=== PATIENT | male | born 1950 | race Caucasian/White ===

== ENCOUNTER 2018-03-28 05:27 | Inpatient (IN) | payer OTHER ==
--- NOTE | 2018-03-28 12:20 | CT ---
CT HEAD NONCONTRAST: History: Syncope. Fall. Head injury. FINDINGS: No comparison. There is no evidence of acute intracranial hemorrhage or infarct. Post-operative niño es right frontal calvarium. Prominent diffuse cortical atrophy and chronic ischemic small vessel dise ase. No mass effect or shift of midline structures. Calcification within the arterial structures at t he brain base. IMPRESSION: 1. Post-operative changes. 2. Atherosclerosis. 3. No acute intracranial abnormalities are demonstrated. POS: BHARATH
[2018-03-28 12:22] LABS: ALT (SGPT) 14 U/L (8-55); AST (SGOT) 16 U/L (5-34); Albumin 4.1 g/dL (3.4-4.8); Alkaline Phosphatase 85 U/L (40-150); Anion Gap 16 mmol/L (10-20); BUN (Urea Nitrogen) 34 mg/dL (8.4-25.7); Bilirubin, Total 0.6 mg/dL (0.2-1.2); Calc. Creatinine Clearance 0 mL/min (70-130); Calcium 8.7 mg/dL (7.8-10.44); Carbon Dioxide 21 mmol/L (23-31); Chloride 104 mmol/L (98-107); Estimated GFR-MDRD 19; Globulin 2.9 g/dL (2.4-3.5); Glucose 117 mg/dL (80-115); Potassium 3.4 mmol/L (3.5-5.1); Sodium 138 mmol/L (136-145)
[2018-03-28 12:23] LABS: CKMB 2.6 ng/mL (0-6.6); Troponin I Less than 0.010 ng/mL (< 0.028)
--- NOTE | 2018-03-28 12:52 | CT ---
CT CERVICAL SPINE WITHOUT CONTRAST: HISTORY: Posttraumatic pain. Fall. COMPARISON: None. FINDINGS: No craniocervical dissociation. There are mild degenerative changes at the atlantoaxial articulation . The lateral masses of C1 and C2 articulate appropriately. There are degenerative changes of the f acets. The odontoid process is intact. Soft tissue neck structures are unremarkable. There is mild mass effect upon the posterior left supr aglottic larynx and hypopharynx due to medial deviation of the left internal carotid artery. The upper mediastinum and lung apices are unremarkable. There are varying degrees of central canal stenosis and foraminal narrowing on the basis of degenerat aj change. There is multilevel facet hypertrophy. Cervical spine vertebral body height is maintained. No cervical spine fracture. IMPRESSION: No cervical spine fracture. POS: BHARATH
[2018-03-28 13:05] LABS: Hemoglobin 14.5 g/dL (14.0-18.0); Mean Corpuscular Volume 83.5 fL (78.0-98.0); Red Blood Cell (RBC) Count 5.13 mill/uL (4.70-6.10); White Blood Cell (WBC) Count 8.6 thou/uL (4.8-10.8)
[2018-03-28 13:06] LABS: #Lymphocytes 1.7 thou/uL (1.20-3.40); #Neutrophils 6.1 thou/uL (1.40-6.50); %Basophils 0.7 % (0.0-1.0); %Eosinophils 0.4 % (0.0-10.0); %Lymphocytes 19.2 % (21.0-51.0); %Neutrophils 71.7 % (42.0-75.0); Mean Corpuscular HGB CONC 33.8 g/dL (32.0-36.0); Mean Corpuscular Hemoglobin 28.2 pg (27.0-31.0); Mean Platelet Volume 7.7 fL (7.4-10.4); Platelet Count 256 thou/uL (130-400); RBC Distribution Width 12.9 % (11.5-14.5)
[2018-03-28 13:07] LABS: #Basophils 0.6 thou/uL (0.0-0.2); #Monocytes 0.7 thou/uL (0.11-0.59)
[2018-03-28] MEDS ORDERED: Acyclovir 800 mg Tablet PO SCH (13:15)
[2018-03-28 14:36] LABS: Troponin I Less than 0.010 ng/mL (< 0.028)
[2018-03-28] MEDS ORDERED: Acetaminophen 325 MG TAB PO PRN (14:59)
[2018-03-28] MEDS ORDERED: Bisacodyl 5 MG TAB PO PRN (14:59)
[2018-03-28] MEDS ORDERED: Acetaminophen 650 MG Suppository PR PRN (14:59)
[2018-03-28] MEDS ORDERED: Dextrose 5% in Water 1,000 ML IV PRN (15:12)
[2018-03-28] MEDS ORDERED: Dextrose 50% Abboject 50 ML SYRINGE SLOW IVP PRN (15:12)
[2018-03-28] MEDS ORDERED: HumaLOG 300 UNITS/3 ML VIAL SC PRN (15:12)
--- NOTE | 2018-03-28 15:14 | HP ---
PRIMARY CARE PROVIDER: Unknown. CHIEF COMPLAINT: Syncopal episode. HISTORY OF PRESENT ILLNESS: Mr. Tamez is a pleasant 67-year-old gentleman who was seen at [facility] on 03/28/2018. He is an inmate of the assisted system. He reports that he was standing up earlier trying to reach for a cup of water and does not recall what happened after t hat. He reportedly passed out and fell on the floor, hitting the right side of his head on the groun d. He denies any palpitations prior to passing out, but does report feeling lightheaded prior to pas sing out. He denies any nausea or vomiting. He denies any fecal or urinary incontinence. He denies any chest pain. REVIEW OF SYSTEMS: All other systems reviewed and found to be negative. PAST MEDICAL HISTORY: Significant for hypertension, COPD, CKD, melanoma, TIA, diabetes mellitus typ e 2, seizures, dyslipidemia, coronary artery disease, and myocardial infarction. He had a normal str ess test in 09/2015. PAST SURGICAL HISTORY: Cardiac catheterization, craniotomy and gland removal from the neck and left lower extremity surgery. ALLERGIES: TALWIN and PEANUTS. HOME MEDICATIONS: The patient is unable to recall his current medications. In the past, he was on c arvedilol, Lasix, lisinopril, nortriptyline, Novolin insulin, phenytoin, pravastatin and spironolacto ne. FAMILY HISTORY: Patient reports coronary artery disease in both his parents. SOCIAL HISTORY: He denies any tobacco use, alcohol use or recreational drug use. CODE STATUS: I discussed his code status. He is FULL CODE. PHYSICAL EXAMINATION: GENERAL: On examination, Mr. Tamez is awake and alert, not in acute distress. He is obese. VITAL SIGNS: Blood pressure is 160/76, pulse 56, respiratory rate 24, and oxygen saturation 98% on r oom air. He is afebrile. EYES: No scleral icterus. No conjunctival pallor. ENT: Moist mucosal membranes, no oropharyngeal erythema or exudates. NECK: Supple, nontender, trachea is midline. RESPIRATORY: Accessory muscles of breathing are not active. Chest wall movements are symmetric bila terally. LUNGS: Clear to auscultation without wheeze, rhonchi or crepitations. CARDIOVASCULAR: S1 and S2 are heard, bradycardic and regular. Peripheral pulses are palpable. No c arotid bruit, no pericardial rub. ABDOMEN: Soft, nontender, bowel sounds heard, no hepatomegaly, no splenomegaly. NEUROLOGIC: Cranial nerves II-XII intact. Deep tendon reflexes are 2+. MUSCULOSKELETAL: Power is 5/5 in all 4 extremities. SKIN: He has herpes zoster over the left lower abdominal wall. He has a hematoma over the right orb it. LYMPHATIC: No cervical lymphadenopathy. PSYCHIATRIC: Normal mood, normal affect, patient is oriented to person, place, and time. IMAGING DATA AND LABORATORY DATA: Mr. Tamez's labs and investigations were reviewed. I reviewed his electrocardiogram, which shows sinus bradycardia, no ST changes to suggest an acute coronary syn drome. I also reviewed a noncontrast CT scan of the brain, which does not show any intracranial blee d. He also had CT scan of the cervical spine, which did not show any cervical spine fracture. He hudson s an unremarkable CBC, normal sodium, decreased potassium of 3.4, decreased carbon dioxide of 21, jennifer vated blood urea nitrogen of 34, elevated creatinine of 3.31, last known creatinine 1.54 on 6, unremarkable liver profile and normal troponin I x2. ASSESSMENT AND PLAN: Mr. Tamez is a pleasant 67-year-old gentleman who was seen at [facility] on 03/28/2018. His problem list includes: 1. Syncope: Etiology of syncope, unclear at this time. The patient will be admitted to the [facility] for telemetry monitoring. Echocardiogram and Cardiology Service consultation are being requested. 2. Herpes zoster: Will continue him on acyclovir. 3. Acute on chronic renal failure: Likely prerenal. I will provide intravenous hydration and reche ck. 4. Hypokalemia: Mild, likely asymptomatic. We will replace potassium. 5. Diabetes mellitus type 2: Start Accu-Cheks, insulin sliding scale. 6. History of seizures: Continue home medications once clarified. 7. Dyslipidemia: Continue home medications once clarified. 8. Hypertension: Resume home medications, monitor vital signs and titrate antihypertensives as need ed. LEVEL OF RISK: High. LEVEL OF COMPLEXITY: High.
[2018-03-28] MEDS ORDERED: Potassium Chloride 20 MEQ TAB PO SCH (15:15)
[2018-03-28] MEDS: Heparin 5,000 UNITS/ML VIAL SC SCH ×2 (15:42→20:51)
[2018-03-28 15:55] VITALS: BMI 38.4
[2018-03-28] MEDS: NS 0.9% w/ 20 MEQ KCL 1,000 ML/1,000 ML BAG IV SCH (16:12)
[2018-03-28] MEDS ORDERED: Prevnar 13-Val Conj/PF 0.5 ML SYRINGE IM ONE (16:45)
[2018-03-28 17:16] LABS: INR-International Normal Ratio 1.1; Prothrombin Time 13.8 SEC (12.0-14.7)
[2018-03-28 17:50] LABS: Troponin I 0.017 ng/mL (< 0.028)
[2018-03-28] MEDS: hydrALAZINE 25 MG TAB PO SCH (20:48)
[2018-03-28] MEDS: Acyclovir 800 mg Tablet PO SCH (20:48)
[2018-03-28] MEDS: Ibuprofen 600 MG TAB PO SCH (20:48)
[2018-03-28] MEDS: Atorvastatin Calcium 40 MG TAB PO SCH (20:50)
--- NOTE | 2018-03-28 21:53 | CON ---
DATE OF CONSULTATION: 03/28/18 The patient is a 67-year-old gentleman who presents with acute loss of consciousness. The patient hudson s no previous cardiac history. He has a history of deep venous thrombosis. He was seen in 09/2015 w ith atypical chest pain. He states he previous suffered a myocardial infarction at [facility] . The patient underwent a stress test during that hospitalization was found to have normal left vent ricular ejection fraction with no evidence of ischemia. The patient was in his usual state of health when he apparently suddenly lost consciousness. The patient fell and hit his head. The patient mitch ed having any chest discomfort. The patient denied having any fevers, chills or diaphoresis. The pa nolberto denies having any type of chest discomfort. PAST MEDICAL HISTORY: Significant for: 1. DVT. 2. Hypertension. 3. Dyslipidemia. 4. Cerebrovascular accident. 5. History of recurrent DVTs. 6. Coronary artery disease. PAST SURGICAL HISTORY: Craniotomy and salivary gland surgery. SOCIAL HISTORY: Former smoker. ALLERGIES: TALWIN and PEANUTS. MEDICATIONS ON ADMISSION: Pravastatin 40 daily, Lasix 40 b.i.d., Coreg 25 b.i.d., nortriptyline 50 d aily, lisinopril 40 daily, Coumadin 7.5 mg p.o. at bedtime. REVIEW OF SYSTEMS: Ten-point system otherwise unremarkable. PHYSICAL EXAMINATION: GENERAL: This is an obese gentleman in no acute distress. VITAL SIGNS: Blood pressure 183/88. NECK: No jugular distention, no carotid bruits. LUNGS: Clear to auscultation. HEART: Regular rate and rhythm, normal S1, S2, no murmurs. ABDOMEN: Nondistended. EXTREMITIES: Showed no edema. VASCULAR: Radial pulses are 2+. LABORATORY: Sodium 138, potassium 3.4, chloride 104, bicarbonate 21, BUN 34, creatinine 3.3. Tropon in was less than 0.01. White blood cell 8.6, hemoglobin 14.5, hematocrit 42.8, platelets are 256. H is EKG revealed sinus bradycardia with a short TN interval and T-wave abnormality suggestive of isch emia. IMPRESSION: 1. Syncope of unclear etiology.. 2. History of coronary artery disease. 3. Diabetes mellitus. 4. Hypertension. 5. History of a cerebrovascular accident. 6. History of DVT. 7. Renal insufficiency. 8. Shingles. This gentleman presents with a syncopal episode of unclear etiology. The patient's initial EKG did s how him to have marked sinus bradycardia. The patient's Coreg has been held. The patient is being h ydrated. An echocardiogram will be obtained. The patient may need to have placement of an event mon itor. We will follow this patient with you through his hospitalization.
[2018-03-28] MEDS: hydrALAZINE 20 MG/ML VIAL SLOW IVP PRN (23:48)
[2018-03-29 04:50] LABS: #Eosinphils 0.1 thou/uL (0.0-0.7); #Lymphocytes 1.6 thou/uL (1.20-3.40); #Monocytes 0.5 thou/uL (0.11-0.59); #Neutrophils 3.7 thou/uL (1.40-6.50); %Eosinophils 1.2 % (0.0-10.0); %Lymphocytes 27.1 % (21.0-51.0); %Monocytes 9.1 % (0.0-10.0); %Neutrophils 62.6 % (42.0-75.0); Hemoglobin 14.5 g/dL (14.0-18.0); Mean Corpuscular Hemoglobin 28.2 pg (27.0-31.0); Mean Corpuscular Volume 83.1 fL (78.0-98.0); Mean Platelet Volume 7.9 fL (7.4-10.4); Platelet Count 231 thou/uL (130-400); RBC Distribution Width 12.8 % (11.5-14.5); Red Blood Cell (RBC) Count 5.14 mill/uL (4.70-6.10)
[2018-03-29] MEDS: NS 0.9% w/ 20 MEQ KCL 1,000 ML/1,000 ML BAG IV SCH ×3 (04:54→23:32)
[2018-03-29 05:15] LABS: Anion Gap 16 mmol/L (10-20); BUN (Urea Nitrogen) 28 mg/dL (8.4-25.7); Calc. Creatinine Clearance 56 mL/min (70-130); Calcium 8.9 mg/dL (7.8-10.44); Carbon Dioxide 17 mmol/L (23-31); Chloride 108 mmol/L (98-107); Estimated GFR-MDRD 29; Glucose 100 mg/dL (80-115); Potassium 3.5 mmol/L (3.5-5.1); Sodium 137 mmol/L (136-145)
[2018-03-29] MEDS ORDERED: glipiZIDE 10 MG TAB PO SCH (07:30)
[2018-03-29] MEDS ORDERED: Furosemide 40 MG TAB PO SCH (09:00)
[2018-03-29] MEDS ORDERED: Amlodipine 5 MG TAB PO SCH (09:15)
[2018-03-29] MEDS: Clopidogrel Bisulfate 75 MG TAB PO SCH (09:22)
[2018-03-29] MEDS: Acyclovir 800 mg Tablet PO SCH ×3 (09:22→20:07)
[2018-03-29] MEDS: hydrALAZINE 25 MG TAB PO SCH ×3 (09:22→20:08)
[2018-03-29] MEDS: Aspirin 81 mg Enteric Coated Tablet PO SCH (09:22)
[2018-03-29] MEDS: Heparin 5,000 UNITS/ML VIAL SC SCH ×3 (09:26→20:11)
[2018-03-29] MEDS: Ibuprofen 600 MG TAB PO SCH (09:32)
--- NOTE | 2018-03-29 09:54 | ULT ---
BILATERAL CAROTID DUPLEX ULTRASOUND: HISTORY: Syncope. FINDINGS: There is plaque formation on both sides. The peak systolic velocity in the right ICA measures 73 cm/s with an end-diastolic velocity of 10 cm/ s and a systolic ratio of 0.5. The peak systolic velocity in the left ICA measures 75 cm/s with an end-diastolic velocity of 18 cm/s and a systolic ratio of 0.7. Flow in both vertebral arteries remains antegrade. IMPRESSION: No evidence of hemodynamically significant stenosis. POS: BHARATH
--- NOTE | 2018-03-29 14:05 | PDOC.PN ---
- Subjective Encounter Start Date: 03/29/18 Encounter Start Time: 09:30 Patient seen and examined for Syncope. No new complaints. No CP/SOB. No overnight events - Objective Resuscitation Status: Resuscitation Status FULL:Full Resuscitation MAR Reviewed: Yes Vital Signs & Weight: Vital Signs (12 hours) Temp Pulse Resp BP BP BP BP 03/29/18 11:55 97.5 F L 60 16 128/62 03/29/18 09:25 59 L 03/29/18 09:22 59 L 03/29/18 07:50 97.9 F 59 L 20 03/29/18 07:10 97.7 F 53 L 16 188/88 H 03/29/18 05:02 97.9 F 59 L 20 206/94 H 184/89 H 165/77 H Pulse Ox 03/29/18 11:55 92 L 03/29/18 09:25 03/29/18 09:22 03/29/18 07:50 03/29/18 07:10 92 L 03/29/18 05:02 Weight Weight 271 lb 3.2 oz I&O: 03/28/18 03/29/18 03/30/18 06:59 06:59 06:59 Intake Total 1516 480 Output Total 1350 Balance 166 480 Result Diagrams: 03/29/18 04:43 03/29/18 04:43 Additional Labs: Accuchecks 03/29/18 03/28/18 03/28/18 10:32 19:54 16:29 POC Glucose 93 112 H 68 L Radiology Reviewed by me: Yes (CT brain - neg, Carotid - neg) EKG Reviewed by me: Yes (Tele SB) Phys Exam - Physical Examination Constitutional: NAD Neck: no JVD Respiratory: no wheezing, no rales, no rhonchi, clear to auscultation bilateral Cardiovascular: RRR, no rub no heaves/pulsations Gastrointestinal: soft, non-tender, no distention, positive bowel sounds Musculoskeletal: no edema Neurological: non-focal, normal sensation, moves all 4 limbs Psychiatric: normal affect, A&O x 3 Dx/Plan - Plan DVT proph w/heparin, DVT proph w/SCDs IMPRESSION: 1. Syncope ?Cardiogenic 2. ERENDIRA/CKD 3 3. Recent Herpes Zoster - on Acyclovir 4. HTN - uncontrolled 5. Obesity BMI 38 / Hypokalemia - resolved / Other issues per previous notes PLAN: Cont IVF - reduce rate to 50 ml/hr Hold Lasix AM labs ?Event monitor DC Ibuprofen Cont Acyclovir - dose adjusted for renal function Cont other meds as below Reduce Glipizide dose due to ERENDIRA Add low dose Amlodipine Recheck BMP at 1700 Await Echo Review of Systems - Review of Systems Respiratory: negative: Cough, Dry, Shortness of Breath, Hemoptysis, SOB with Excertion, Pleuritic Pain, Sputum, Wheezing Cardiovascular: negative: chest pain, palpitations, orthopnea, paroxysmal nocturnal dyspnea, edema, light headedness, other - Medications/Allergies Allergies/Adverse Reactions: Allergies Allergy/AdvReac Type Severity Reaction Status Date / Time peanut Allergy Verified 09/16/15 22:51 pentazocine lactate Allergy Verified 09/16/15 22:51 [From Bryan] Medications: Current Medications Acetaminophen (Tylenol) 650 mg PO Q4H PRN PRN Reason: Headache/Fever or Pain Acetaminophen (Tylenol) 650 mg MA Q4H PRN PRN Reason: Headache/Fever or Pain Acyclovir (Zovirax) 800 mg PO TID [facility] Last Admin: 03/29/18 09:22 Dose: 800 mg Amlodipine Besylate (Norvasc) 5 mg PO BID [facility] Aspirin (Ecotrin) 81 mg PO DAILY [facility] Last Admin: 03/29/18 09:22 Dose: 81 mg Atorvastatin Calcium (Lipitor) 80 mg PO HS [facility] Last Admin: 03/28/18 20:50 Dose: 80 mg Bisacodyl (Dulcolax) 10 mg PO DAILYPRN PRN PRN Reason: Constipation Clopidogrel Bisulfate (Plavix) 75 mg PO DAILY [facility] Last Admin: 03/29/18 09:22 Dose: 75 mg Dextrose/Water (Dextrose 50%) 25 gm SLOW IVP PRN PRN PRN Reason: Hypoglycemia Duloxetine HCl (Cymbalta) 40 mg PO HS [facility] Last Admin: 03/28/18 20:50 Dose: 40 mg Furosemide (Lasix) 40 mg PO 0900 [facility] Last Admin: 03/29/18 09:22 Dose: 40 mg Glipizide (Glucotrol) 5 mg PO DAILY-[facility] Glucagon (Glucagon) 1 mg IM PRN PRN PRN Reason: Hypoglycemia Heparin Sodium (Porcine) (Heparin) 5,000 units SC TID [facility] Last Admin: 03/29/18 09:26 Dose: 5,000 units Hydralazine HCl (Apresoline) 25 mg PO TID [facility] Last Admin: 03/29/18 09:22 Dose: 25 mg Hydralazine HCl (Apresoline) 10 mg SLOW IVP Q4H PRN PRN Reason: SBP > 180 OR SBP > 100 Last Admin: 03/28/18 23:48 Dose: 10 mg Potassium Chloride/Sodium Chloride (Ns 0.9% W/ 20 Meq Kcl) 1,000 ml in 1,000 mls @ 75 mls/hr IV .[id number] [facility] Last Admin: 03/29/18 04:54 Dose: 1,000 mls Dextrose/Water (D5w) 1,000 mls @ 0 mls/hr IV .Q0M PRN PRN Reason: Hypoglycemia Insulin Human Lispro (Humalog) 0 units SC .MILD SLIDING SCALE PRN PRN Reason: Mild Correctional Scale Isosorbide Mononitrate (Imdur Er) 30 mg PO DAILY [facility] Last Admin: 03/29/18 09:22 Dose: 30 mg
[2018-03-29 17:57] LABS: Anion Gap 15 mmol/L (10-20); BUN (Urea Nitrogen) 27 mg/dL (8.4-25.7); Calc. Creatinine Clearance 55 mL/min (70-130); Calcium 9.1 mg/dL (7.8-10.44); Carbon Dioxide 22 mmol/L (23-31); Chloride 105 mmol/L (98-107); Estimated GFR-MDRD 29; Glucose 95 mg/dL (80-115); Potassium 3.6 mmol/L (3.5-5.1); Sodium 138 mmol/L (136-145)
[2018-03-29] MEDS: Atorvastatin Calcium 40 MG TAB PO SCH (20:07)
[2018-03-29] MEDS: Amlodipine 5 MG TAB PO SCH (20:08)
[2018-03-29] MEDS: hydrALAZINE 20 MG/ML VIAL SLOW IVP PRN (23:19)
[2018-03-30] MEDS: hydrALAZINE 20 MG/ML VIAL SLOW IVP PRN (03:49)
[2018-03-30 04:58] LABS: Anion Gap 16 mmol/L (10-20); BUN (Urea Nitrogen) 22 mg/dL (8.4-25.7); Calc. Creatinine Clearance 66 mL/min (70-130); Calcium 9.2 mg/dL (7.8-10.44); Carbon Dioxide 18 mmol/L (23-31); Chloride 106 mmol/L (98-107); Estimated GFR-MDRD 35; Glucose 99 mg/dL (80-115); Potassium 3.4 mmol/L (3.5-5.1); Sodium 137 mmol/L (136-145)
[2018-03-30] MEDS: glipiZIDE 5 MG TAB PO SCH (08:03)
[2018-03-30] MEDS: Potassium Chloride 20 MEQ TAB PO SCH (08:04)
[2018-03-30] MEDS ORDERED: Amlodipine 5 MG TAB PO SCH (09:00)
[2018-03-30] MEDS: Amlodipine 5 MG TAB PO SCH ×2 (09:09→21:48)
[2018-03-30] MEDS: Clopidogrel Bisulfate 75 MG TAB PO SCH (09:09)
[2018-03-30] MEDS: Aspirin 81 mg Enteric Coated Tablet PO SCH (09:09)
[2018-03-30] MEDS: Acyclovir 800 mg Tablet PO SCH ×3 (09:09→21:47)
[2018-03-30] MEDS: Heparin 5,000 UNITS/ML VIAL SC SCH ×2 (09:10→16:08)
[2018-03-30] MEDS: hydrALAZINE 25 MG TAB PO SCH ×3 (09:11→21:48)
--- NOTE | 2018-03-30 15:40 | PDOC.PN ---
- Subjective Encounter Start Date: 03/30/18 Encounter Start Time: 10:30 Patient seen and examined for ERENDIRA/Syncope. Orthostatic vitals positive today. No new complaints. No overnight events - Objective Resuscitation Status: Resuscitation Status FULL:Full Resuscitation MAR Reviewed: Yes Vital Signs & Weight: Vital Signs (12 hours) Temp Pulse Resp BP BP BP BP 03/30/18 11:11 97.1 F L 63 20 159/77 H 03/30/18 09:11 63 03/30/18 09:09 63 03/30/18 08:35 170/69 H 163/74 H 03/30/18 07:57 219/101 H 125/67 03/30/18 07:20 97.2 F L 63 20 03/30/18 05:00 62 175/82 H 03/30/18 03:49 61 03/30/18 03:38 61 20 189/91 H BP Pulse Ox 03/30/18 11:11 93 L 03/30/18 09:11 03/30/18 09:09 03/30/18 08:35 187/84 H 03/30/18 07:57 196/91 H 03/30/18 07:20 92 L 03/30/18 05:00 03/30/18 03:49 03/30/18 03:38 93 L Weight Weight 277 lb I&O: 03/29/18 03/30/18 03/31/18 06:59 06:59 06:59 Intake Total 1516 2198 Output Total 1350 1500 400 Balance 166 698 -400 Result Diagrams: 03/29/18 04:43 03/30/18 03:41 Additional Labs: Accuchecks 03/30/18 03/29/18 11:13 20:08 POC Glucose 94 110 EKG Reviewed by me: Yes (Tele SR) Phys Exam - Physical Examination Constitutional: NAD Respiratory: no wheezing, no rhonchi Cardiovascular: RRR, no rub Gastrointestinal: soft, non-tender, positive bowel sounds Musculoskeletal: no edema Neurological: moves all 4 limbs Dx/Plan - Plan DVT proph w/heparin, DVT proph w/SCDs IMPRESSION: 1. Syncope prob due to Orthostatic hypotension 2. ERENDIRA/CKD 3 - improving - prob due to NSAIDs 3. Recent Herpes Zoster - on Acyclovir 4. HTN - uncontrolled 5. Obesity BMI 38 / Hypokalemia / Other issues per previous notes PLAN: DC IVF Lasix on hold AM labs Repeat Orthostatic vitals in AM Change to inpatient - not stable for dc Cont Acyclovir/Glipizide Cont other meds as below Echo - normal EF Replace Potassium Review of Systems - Review of Systems Respiratory: negative: Cough, Dry, Shortness of Breath, Hemoptysis, SOB with Excertion, Pleuritic Pain, Sputum, Wheezing Cardiovascular: negative: chest pain, palpitations, orthopnea, paroxysmal nocturnal dyspnea, edema, light headedness, other - Medications/Allergies Allergies/Adverse Reactions: Allergies Allergy/AdvReac Type Severity Reaction Status Date / Time peanut Allergy Verified 09/16/15 22:51 pentazocine lactate Allergy Verified 09/16/15 22:51 [From Bryan] Medications: Current Medications Acetaminophen (Tylenol) 650 mg PO Q4H PRN PRN Reason: Headache/Fever or Pain Acetaminophen (Tylenol) 650 mg TN Q4H PRN PRN Reason: Headache/Fever or Pain Acyclovir (Zovirax) 800 mg PO TID [facility] Last Admin: 03/30/18 09:09 Dose: 800 mg Amlodipine Besylate (Norvasc) 5 mg PO BID [facility] Last Admin: 03/30/18 09:09 Dose: Not Given Aspirin (Ecotrin) 81 mg PO DAILY [facility] Last Admin: 03/30/18 09:09 Dose: 81 mg Atorvastatin Calcium (Lipitor) 80 mg PO [facility] Last Admin: 03/29/18 20:07 Dose: 80 mg Bisacodyl (Dulcolax) 10 mg PO DAILYPRN PRN PRN Reason: Constipation Clopidogrel Bisulfate (Plavix) 75 mg PO DAILY [facility] Last Admin: 03/30/18 09:09 Dose: 75 mg Dextrose/Water (Dextrose 50%) 25 gm SLOW IVP PRN PRN PRN Reason: Hypoglycemia Duloxetine HCl (Cymbalta) 40 mg PO HS [facility] Last Admin: 03/29/18 20:08 Dose: 40 mg Glipizide (Glucotrol) 5 mg PO DAILY-[facility] Last Admin: 03/30/18 08:03 Dose: 5 mg Glucagon (Glucagon) 1 mg IM PRN PRN PRN Reason: Hypoglycemia Heparin Sodium (Porcine) (Heparin) 5,000 units SC BID [facility] Hydralazine HCl (Apresoline) 25 mg PO TID [facility] Last Admin: 03/30/18 09:11 Dose: Not Given Hydralazine HCl (Apresoline) 10 mg SLOW IVP Q4H PRN PRN Reason: SBP > 180 OR SBP > 100 Last Admin: 03/30/18 03:49 Dose: 10 mg Dextrose/Water (D5w) 1,000 mls @ 0 mls/hr IV .Q0M PRN PRN Reason: Hypoglycemia Insulin Human Lispro (Humalog) 0 units SC .MILD SLIDING SCALE PRN PRN Reason: Mild Correctional Scale Isosorbide Mononitrate (Imdur Er) 30 mg PO DAILY [facility] Last Admin: 03/30/18 09:09 Dose: 30 mg Potassium Chloride (K-Dur) 20 meq PO QAM-WM [facility] Last Admin: 03/30/18 08:04 Dose: 20 meq Sodium Chloride (Flush - Normal Saline) 10 ml IVF Q12HR [facility] Last Admin: 03/30/18 09:07 Dose: 10 ml Sodium Chloride (Flush - Normal Saline) 10 ml IVF PRN PRN PRN Reason: Saline Flush
[2018-03-30] MEDS: Atorvastatin Calcium 40 MG TAB PO SCH (21:47)
[2018-03-31] MEDS ORDERED: hydrALAZINE 10 MG TAB PO PRN (01:41)
[2018-03-31 06:01] LABS: Anion Gap 14 mmol/L (10-20); BUN (Urea Nitrogen) 21 mg/dL (8.4-25.7); Calc. Creatinine Clearance 70 mL/min (70-130); Calcium 9.4 mg/dL (7.8-10.44); Carbon Dioxide 21 mmol/L (23-31); Chloride 105 mmol/L (98-107); Estimated GFR-MDRD 37; Glucose 101 mg/dL (80-115); Potassium 3.4 mmol/L (3.5-5.1); Sodium 137 mmol/L (136-145)
[2018-03-31] MEDS: Amlodipine 5 MG TAB PO SCH (08:56)
[2018-03-31] MEDS: Potassium Chloride 20 MEQ TAB PO SCH (08:56)
[2018-03-31] MEDS: glipiZIDE 5 MG TAB PO SCH (08:56)
[2018-03-31] MEDS: Clopidogrel Bisulfate 75 MG TAB PO SCH (08:56)
[2018-03-31] MEDS: hydrALAZINE 25 MG TAB PO SCH (08:57)
[2018-03-31] MEDS: Aspirin 81 mg Enteric Coated Tablet PO SCH (08:57)
[2018-03-31] MEDS ORDERED: Heparin 5,000 UNITS/ML VIAL SC SCH (09:00)
[2018-03-31] MEDS: Acyclovir 800 mg Tablet PO SCH (09:01)
[2018-03-31 12:13] VITALS: BP 162/84; TEMP 98.2
--- NOTE | 2018-04-01 10:11 | DIS ---
DATE OF DISCHARGE: 03/31/2018 DISCHARGE DISPOSITION: Patient is an inmate at [facility]. The patient was seen and examined on the day. Denies any new complaints, no chest pain, shortness of breath, palpitations. DISCHARGE MEDICATIONS: Aspirin 81 mg daily, Lipitor 80 mg daily, Plavix 75 mg daily, Cymbalta 30 mg at bedtime, Lasix 40 mg daily, glipizide 10 mg daily, hydralazine 25 mg 3 times a day, Imdur ER 30 mg daily, levothyroxine 50 mcg daily, ranitidine 150 mg daily, amlodipine 5 mg b.i.d., carvedilol 3.125 mg twice a day, potassium chloride 10 mEq daily for the next 5 days. Repeat basic metabolic after 1 week is recommended. Primary care physician is advised to follow. INPATIENT PATIENT ACCOUNTS COORDINATOR: Cardiology, Dr. Josue Herrera. DIAGNOSTIC TESTS: Echocardiogram showed ejection fraction 55%-60% with mild to moderate concentric l eft ventricular hypertrophy as well as diastolic dysfunction. BRIEF HOSPITAL COURSE: Patient is a 67-year-old male with coronary artery disease, COPD and hyperten doroteo with a negative stress test in 09/2015 presented to the emergency room after a syncopal episode. He was standing at that time. Please refer to the history and physical by Dr. Sandy for further de tails. The patient was admitted to the hospital with a diagnosis of syncope of unclear etiology. He was fou nd to have acute kidney injury with creatinine of 3.31 that improved to 1.86 after IV hydration. He was also found to have orthostatic hypotension. His medications have been optimized by Cardiology. His standing blood pressure today was in 150s. He had an echocardiogram as discussed above. Carotid Doppler was negative for hemodynamically significant stenosis. He had one episode of supraventricul ar tachycardia. He was initially found to have significant bradycardia without any significant AV bl ock. For this reason, Carvedilol has been resumed at a very low dose at discharge. All of his medic ations were reviewed with the raftsman, Dr. Josue Herrera. FINAL DIAGNOSES: 1. Syncopal episode, probably secondary to acute kidney injury and orthostatic hypotension. 2. Acute kidney injury on chronic kidney disease stage 3, probably secondary to daily use of ibuprof en. Ibuprofen has been discontinued. 3. Recent herpes zoster. The patient completed acyclovir during this hospital stay. This will be d iscontinued at discharge. 4. Hypertension. Patient will continue amlodipine and low dose carvedilol with hydralazine. 5. Obesity with body mass index 38. 6. Hypokalemia. 7. Chronic diastolic heart failure. 8. History of seizures in the past. 9. Negative stress test in 2016. 10. Dyslipidemia. Plan of care was discussed with the patient in detail. He stated understanding. Total time coordinating the discharge of this patient was 36 minutes.
--- NOTE | 2018-04-03 08:22 | EKG ---
Test Reason : Blood Pressure : / mmHG Vent. Rate : 052 BPM Atrial Rate : 052 BPM P-R Int : 098 ms QRS Dur : 110 ms QT Int : 446 ms P-R-T Axes : 049 -13 158 degrees QTc Int : 414 ms 00 Sinus bradycardia with short SC T wave abnormality, consider lateral ischemia Abnormal ECG No previous ECGs available Confirmed by DR. Kel DE ([id number]) on 04/03/2018 8:22:35 AM Referred By: SAIRA Confirmed By:DR. Kel DE
== END 2018-03-31 12:15 | DRG 683 ==
LOC: ERS 05:27 → 2SW 13:46 → OBSVTOIN 03-30 09:46 → 2NO 03-30 18:51
PROVIDERS: ADMIT Internal Medicine; ATTEND Internal Medicine
DX: N17.9 Acute kidney failure, unspecified (principal); I47.1 Supraventricular tachycardia; I13.0 Hypertensive heart and chronic kidney disease with heart failure and stage 1 through stage 4 chronic kidney disease, or unspecified chronic kidney disease; I50.32 Chronic diastolic (congestive) heart failure; E87.6 Hypokalemia; N18.3 Chronic kidney disease, stage 3 (moderate); I95.1 Orthostatic hypotension; T39.315A Adverse effect of propionic acid derivatives, initial encounter; B02.9 Zoster without complications; I25.10 Atherosclerotic heart disease of native coronary artery without angina pectoris; E11.22 Type 2 diabetes mellitus with diabetic chronic kidney disease; R00.1 Bradycardia, unspecified; J44.9 Chronic obstructive pulmonary disease, unspecified; E66.9 Obesity, unspecified; Z68.38 Body mass index [BMI] 38.0-38.9, adult; E78.5 Hyperlipidemia, unspecified; I25.2 Old myocardial infarction; Z86.73 Personal history of transient ischemic attack (TIA), and cerebral infarction without residual deficits; Z86.718 Personal history of other venous thrombosis and embolism; Z87.891 Personal history of nicotine dependence; Z79.4 Long term (current) use of insulin; Z79.01 Long term (current) use of anticoagulants
CPT/HCPCS: 36415; 36416; 70450; 72125; 80048; 80053; 80185; 82553; 83735; 84484; 85025; 85610; 93005; 93010; 93306; 93880; A4216; J0360; J1644

== ENCOUNTER 2018-09-18 01:30 | Emergency (ER) | payer OTHER ==
[2018-09-18 02:25] LABS: #Eosinphils 0.1 thou/uL (0.0-0.7); #Lymphocytes 0.9 thou/uL (1.20-3.40); #Monocytes 0.7 thou/uL (0.11-0.59); #Neutrophils 8.5 thou/uL (1.40-6.50); %Basophils 0.3 % (0.0-1.0); %Eosinophils 0.7 % (0.0-10.0); %Lymphocytes 8.5 % (21.0-51.0); %Monocytes 7.2 % (0.0-10.0); %Neutrophils 83.3 % (42.0-75.0); Hemoglobin 15.7 g/dL (14.0-18.0); Mean Corpuscular HGB CONC 32.1 g/dL (32.0-36.0); Mean Corpuscular Hemoglobin 27.5 pg (27.0-31.0); Mean Corpuscular Volume 85.6 fL (78.0-98.0); Mean Platelet Volume 6.9 fL (7.4-10.4); Platelet Count 258 thou/uL (130-400); RBC Distribution Width 13.5 % (11.5-14.5); White Blood Cell (WBC) Count 10.2 thou/uL (4.8-10.8)
[2018-09-18 02:34] LABS: INR-International Normal Ratio 1.1; Prothrombin Time 14.3 SEC (12.0-14.7)
[2018-09-18 02:50] LABS: ALT (SGPT) 8 U/L (8-55); AST (SGOT) 8 U/L (5-34); Acetaminophen Less than 6.0 mcg/mL (10.0-30.0); Albumin 4.3 g/dL (3.4-4.8); Alcohol Less than 10 mg/dL (Less than 10); Alkaline Phosphatase 82 U/L (40-150); Anion Gap 15 mmol/L (10-20); BUN (Urea Nitrogen) 19 mg/dL (8.4-25.7); Bilirubin, Total 0.7 mg/dL (0.2-1.2); Calc. Creatinine Clearance 0 mL/min (70-130); Calcium 9.7 mg/dL (7.8-10.44); Carbon Dioxide 26 mmol/L (23-31); Chloride 101 mmol/L (98-107); Estimated GFR-MDRD 33; Globulin 2.6 g/dL (2.4-3.5); Glucose 163 mg/dL (80-115); Potassium 3.7 mmol/L (3.5-5.1); Protein, Total 6.9 g/dL (5.8-8.1); Salicylate Less than 8.0 mg/dL (15.0-30.0); Sodium 138 mmol/L (136-145)
[2018-09-18] MEDS ORDERED: acetaZOLAMIDE Sodium 500 MG in Sodium Chloride 0.9% 50 ML IVPB SCH (03:15)
[2018-09-18] MEDS ORDERED: Pilocarpine 1% Ophth Drops 15 ML BOT R EYE SCH (03:30)
[2018-09-18] MEDS ORDERED: Timolol 0.5% Ophth Soln 5 ml Bottle R EYE SCH (03:30)
--- NOTE | 2018-09-18 08:12 | CT ---
PRELIMINARY REPORT/[facility]/EMERGENTY AFTER-HOURS PROCEDURE CT Angiography Head Without And With Contrast EXAM DATE/TIME: 09/18/2018 2:05 AM CLINICAL HISTORY: 68 years old, male; Signs and symptoms; Cognitive deficit; Altered mental status; Patient HX: PT is a &ox1 only to his name. Unable to obtain HX from patient. PT sent over from records from the long-term. Lucy Ruth appears to have fallen during lunchtime and hit his head on the wall. He went to nearby er where th bradley did CT c-spine and head and was cleared. Per guards they state he was only back 30-40 minutes when he started falling to the side on the bench. They report he is usually a&ox3 TECHNIQUE: Axial computed tomographic angiography images of the head without and with intravenous contrast using CT angiography protocol. MIP reconstructed images were created and reviewed. COMPARISON: CT Brain WO Con 09/18/2018 2:00 AM FINDINGS: Right internal carotid artery: Mild calcified atherosclerotic plaque within the suki, supraclinoid, and cavernous portions of the right internal carotid artery, causing less than 20% luminal narrowing . Right anterior cerebral artery: Unremarkable. No occlusion or significant stenosis. No aneurysm. Right middle cerebral artery: Unremarkable. No occlusion or significant stenosis. No aneurysm. Right posterior cerebral artery: Unremarkable. No occlusion or significant stenosis. No aneurysm. Right vertebral artery: Unremarkable. No occlusion or significant stenosis. No aneurysm. Left internal carotid artery: Mild calcified atherosclerotic plaque within the cavernous and supracli noid portions of the left internal carotid artery, causing less than 20% luminal narrowing. Left anterior cerebral artery: Unremarkable. No occlusion or significant stenosis. No aneurysm. Left middle cerebral artery: Unremarkable. No occlusion or significant stenosis. No aneurysm. Left posterior cerebral artery: Unremarkable. No occlusion or significant stenosis. No aneurysm. Left vertebral artery: Unremarkable. No occlusion or significant stenosis. No aneurysm. Basilar artery: Unremarkable. No occlusion or significant stenosis. No aneurysm. HEAD: Brain: Unremarkable. No hemorrhage. No significant white matter disease. No edema. Ventricles: Normal. No ventriculomegaly. Bones/joints: Unremarkable. No acute fracture. Sinuses: Visualized sinuses are normal. No fluid levels. Mastoid air cells: Visualized mastoids are normal. No mastoid effusion. Soft tissues: Unremarkable. IMPRESSION: No acute abnormality. CT Angiography Neck With Contrast EXAM DATE/TIME: 09/18/2018 2:05 AM TECHNIQUE: Axial computed tomographic angiography images of the neck with intravenous contrast using CT angiogra phy protocol. MIP reconstructed images were created and reviewed. COMPARISON: CT Brain WO Con 09/18/2018 2:00 AM FINDINGS: VASCULATURE: Right common carotid artery: Mild noncalcified atherosclerotic plaque within the mid right common car otid artery, without significant luminal narrowing. Mild mixed atherosclerotic plaque within the dist al right common carotid artery, causing less than 20% luminal narrowing. Right internal carotid artery: Moderate mixed atherosclerotic plaque within the proximal right ICA, c ausing approximately 50% luminal narrowing. Right external carotid artery: Normal. No occlusion or significant stenosis. Right vertebral artery: Normal. No significant stenosis. No dissection or occlusion. Left common carotid artery: Mild noncalcified atherosclerotic plaque within the mid left common carot id artery, without significant narrowing. Mild mixed atherosclerotic plaque within the distal left co mmon carotid artery, causing less than 20% luminal narrowing. Left internal carotid artery: Normal. Extracranial segment is patent with no significant stenosis. No dissection or occlusion. Left external carotid artery: Normal. No occlusion or significant stenosis. Left vertebral artery: Normal. No significant stenosis. No dissection or occlusion. NECK: Bones/joints: Multilevel cervical spine degenerative changes. Soft tissues: Normal. No significant soft tissue swelling. IMPRESSION: Moderate mixed atherosclerotic plaque within the proximal right ICA, causing approximately 50% lumina l narrowing. COMMENT: Reference per NASCET criteria for degree of stenosis: Mild: less than 50% stenosis. Moderate: 50-69% stenosis. Severe: 70-94% stenosis. Near occlusion: 95-99% stenosis. Thank you for allowing us to participate in the care of your patient. Dictated and Authenticated by: Heber Toussaint MD 09/18/2018 2:43 AM Central Time ([place] & [place]) FINAL REPORT CT ANGIOGRAM HEAD WITH CONTRAST CT ANGIOGRAM NECK WITH CONTRAST: Date: 09/18/18 HISTORY: Fall. COMPARISON: None. TECHNIQUE: CT angiogram of head and neck performed after the intravenous administration of contrast. 3D renderin g was provided. FINDINGS/IMPRESSION: Findings and impression are concordant with the preliminary report by Stacie. POS: [facility]
--- NOTE | 2018-09-18 08:14 | CT ---
PRELIMINARY REPORT/[facility]/EMERGENTY AFTER-HOURS PROCEDURE CT Head Without Contrast EXAM DATE/TIME: 09/18/2018 2:00 AM CLINICAL HISTORY: 68 years old, male; Signs and symptoms; Alteration of consciousness; Transient alteration of awarenes s; Patient HX: PT is a&ox1 only to his name. Unable to obtain HX from patient. [facility] PT appears to have fallen during lunchtime and hit his head on the wall. He went to nearby er where they did CT c-spine and head and was cleared. Per guards they state he was only back 30-40 minutes when he started falling to the side on the bench. They report he is usually a&ox3 TECHNIQUE: Axial computed tomography images of the head/brain without contrast. COMPARISON: No relevant prior studies available. FINDINGS: Brain: Scattered areas of hypoattenuation, likely chronic small vessel ischemic change, demyelination , or gliosis. There is parenchymal atrophy. Ventricles: Normal. Bones/joints: Changes of prior right parietal craniectomy, with cranioplasty. Sinuses: Normal as visualized. Mastoid air cells: Normal as visualized. Soft tissues: Unremarkable. Vasculature: Atherosclerotic vascular calcifications. IMPRESSION: No acute intracranial abnormality. Thank you for allowing us to participate in the care of your patient. Dictated and Authenticated by: Heber Toussaint MD 09/18/2018 2:35 AM Central Time ([place] & [place]) FINAL REPORT CT BRAIN: Date: 09/18/18 HISTORY: Altered mental status. COMPARISON: CT brain dated 03/28/18. FINDINGS/IMPRESSION: Findings and impression are concordant with the preliminary report by Stacie. Right parietal craniotomy changes are similar. POS: [facility]
[2018-09-18] MEDS ORDERED: ISOVUE-370 76%-LOCM 1 ML ONE (10:55)
== END 2018-09-18 06:13 | disposition short-term general hospital (02) ==
LOC: ERS 01:30 → EEVIPCON 01:30 → ERS 06:13
DX: S06.9X9A Unspecified intracranial injury with loss of consciousness of unspecified duration, initial encounter (principal); H40.211 Acute angle-closure glaucoma, right eye; I25.10 Atherosclerotic heart disease of native coronary artery without angina pectoris; E11.9 Type 2 diabetes mellitus without complications; I11.0 Hypertensive heart disease with heart failure; I50.9 Heart failure, unspecified; K21.9 Gastro-esophageal reflux disease without esophagitis; M19.90 Unspecified osteoarthritis, unspecified site; J44.9 Chronic obstructive pulmonary disease, unspecified; E03.9 Hypothyroidism, unspecified; Z79.82 Long term (current) use of aspirin; Z79.899 Other long term (current) drug therapy; Z79.891 Long term (current) use of opiate analgesic; W22.01XA Walked into wall, initial encounter
CPT/HCPCS: 36415; 70450; 70496; 70498; 80053; 80307; 84484; 85025; 85610; 93005; 96365; J1120; J7050; Q9966

== ENCOUNTER 2018-10-07 10:53 | Emergency (ER) | payer OTHER ==
[2018-10-07 11:42] LABS: #Eosinphils 0.1 thou/uL (0.0-0.7); #Monocytes 0.5 thou/uL (0.11-0.59); #Neutrophils 6.6 thou/uL (1.40-6.50); %Basophils 0.4 % (0.0-1.0); %Eosinophils 0.8 % (0.0-10.0); %Lymphocytes 12.2 % (21.0-51.0); %Neutrophils 80.6 % (42.0-75.0); Mean Corpuscular HGB CONC 32.6 g/dL (32.0-36.0); Mean Corpuscular Hemoglobin 27.4 pg (27.0-31.0); Mean Corpuscular Volume 83.8 fL (78.0-98.0); Mean Platelet Volume 6.7 fL (7.4-10.4); Platelet Count 265 thou/uL (130-400); RBC Distribution Width 13.4 % (11.5-14.5); Red Blood Cell (RBC) Count 5.47 mill/uL (4.70-6.10); White Blood Cell (WBC) Count 8.2 thou/uL (4.8-10.8)
[2018-10-07 11:55] LABS: ALT (SGPT) 10 U/L (8-55); AST (SGOT) 12 U/L (5-34); Albumin 4.3 g/dL (3.4-4.8); Alkaline Phosphatase 73 U/L (40-150); Anion Gap 15 mmol/L (10-20); BUN (Urea Nitrogen) 18 mg/dL (8.4-25.7); Bilirubin, Total 0.4 mg/dL (0.2-1.2); CK (CPK) 175 U/L (30-200); Calc. Creatinine Clearance 0 mL/min (70-130); Calcium 9.5 mg/dL (7.8-10.44); Carbon Dioxide 24 mmol/L (23-31); Chloride 103 mmol/L (98-107); Estimated GFR-MDRD 45; Globulin 2.9 g/dL (2.4-3.5); Glucose 140 mg/dL (80-115); Lipase 26 U/L (8-78); Potassium 3.2 mmol/L (3.5-5.1); Protein, Total 7.2 g/dL (5.8-8.1); Sodium 139 mmol/L (136-145)
--- NOTE | 2018-10-07 12:05 | RAD ---
PORTABLE CHEST: DATE: 10/07/2018. PROVIDED CLINICAL HISTORY: Syncope. FINDINGS: Comparison 04/13/2018. Cardiac and mediastinal silhouette is unchanged in appearance. No focal conso lidation, pleural fluid, or pneumothorax apparent. IMPRESSION: No evidence for an acute cardiopulmonary process. POS: [facility]
--- NOTE | 2018-10-07 12:09 | CT ---
CT BRAIN: DATE: 10/07/2018. PROVIDED CLINICAL HISTORY: Syncope. FINDINGS: Comparison 09/18/2018. The ventricular system appears normal in size and morphology. There is no evid ence for intracranial hemorrhage or mass effect. Chronic microvascular ischemic changes are redemons trated, similar to the prior examination. The extracranial soft tissues and osseous structures demon strate a stable CT appearance. IMPRESSION: No evidence for intracranial hemorrhage or mass effect. POS: [facility]
== END 2018-10-07 15:23 | disposition home or self-care (01) ==
LOC: ERS 10:53
DX: R55 Syncope and collapse (principal); E11.9 Type 2 diabetes mellitus without complications; E03.9 Hypothyroidism, unspecified; K21.9 Gastro-esophageal reflux disease without esophagitis; M19.90 Unspecified osteoarthritis, unspecified site; J44.9 Chronic obstructive pulmonary disease, unspecified; Z79.82 Long term (current) use of aspirin; Z79.899 Other long term (current) drug therapy
CPT/HCPCS: 36415; 70450; 71045; 80053; 82550; 83690; 83880; 84146; 84484; 85025; 85379; 93005